=== PATIENT | female | born 1985 | race Caucasian/White ===

== ENCOUNTER 2019-09-11 10:01 | Emergency (ER) | payer MEDICAID ==
[~2019-09-11] VITALS: Ht 154.9 cm; Wt 65.0 kg
[2019-09-11 10:10] VITALS: BP 145/99
[2019-09-11] MEDS ORDERED: AZITHROMYCIN 500 MG TABLET PO ONE (10:45)
[2019-09-11] MEDS ORDERED: CEFTRIAXONE SODIUM 250 MG/VIAL IM ONE (10:45)
[2019-09-11 10:55] LABS: CLARITY URINE CLEAR (CLEAR); COLOR URINE YELLOW (YELLOW); KETONES URINE NEGATIVE (NEGATIVE); LEUKOCYTE ESTERASE URINE TRACE (NEGATIVE); NITRITE URINE NEGATIVE (NEGATIVE); OCCULT BLOOD URINE NEGATIVE (NEGATIVE); PH URINE 6.5 (4.5-8.0); PROTEIN URINE NEGATIVE (NEGATIVE); SPECIFIC GRAVITY URINE 1.019 (1.005-1.030); UROBILINOGEN URINE 0.2 E.U./dL (0.2-1.0)
[2019-09-11] MEDS ORDERED: LIDOCAINE HCL 1% 20ML VIAL (Pyxis) INJ INFIL ONE (11:00)
[2019-09-13 04:07] LABS: NEISSERIA GONORRHOEAE NAA Negative (Negative)
== END 2019-09-11 11:40 | disposition home or self-care (01) ==
LOC: ER 10:01
DX: N89.8 Other specified noninflammatory disorders of vagina (principal)
CPT/HCPCS: 81003; 81025; 87491; 87591; 99283; J0696

== ENCOUNTER 2021-06-18 03:22 | Emergency (ER) | payer MEDICAID, OTHER ==
[~2021-06-18] VITALS: Ht 172.7 cm; Wt 65.0 kg
[2021-06-18 03:34] VITALS: BP 140/86
== END 2021-06-18 04:29 | disposition left against medical advice (07) ==
LOC: ER 03:22
DX: Z53.21 Procedure and treatment not carried out due to patient leaving prior to being seen by health care provider (principal); R51.9 Headache, unspecified
CPT/HCPCS: 81025